=== PATIENT | male | born 1975 | race Hispanic/Latino ===

== ENCOUNTER → 2024-10-22 | Day surgery (SDC) | payer BC ==
[~2024-10-22] MED LIST: BENZOCAINE/TETRACAINE/BUTAMBEN AERO SPRAY 56 GM CAN ONE; FENTANYL CITRATE/PF 100MCG/2 ML INJ ONE; GLUCAGON FOR INJ 1 MG VIAL ONE; HYOSCYAMINE SULFATE 0.5 MG/ML INJ ONE; LACTATED RINGER'S 1,000 ML ONE; LIDOCAINE HCL 2% LOCAL INJ 5 ML SDV VIAL INJ ONE; METOCLOPRAMIDE HCL 10 MG/2ML VIAL ONE; NEOSTIGMINE 1 MG/ML 10ML VIAL ONE; PROPOFOL IV EMULSION 10 MG/ML 20 ML VIAL ONE; PROPOFOL IV EMULSION 50 ML IV ONE
[2024-10-22] MEDS: LACTATED RINGER'S 1,000 ML ONE (12:19)
[2024-10-22 14:49] VITALS: TEMP 97.1
[2024-10-22 15:20] VITALS: BP 123/89; PULSE 62; RESP 18; O2SAT 100
== END | disposition home or self-care (01) ==
LOC: OR 10-12 09:54
PROVIDERS: ATTEND Internal Medicine Gastroenterology
DX: K21.9 Gastro-esophageal reflux disease without esophagitis (principal); D12.2 Benign neoplasm of ascending colon; K29.50 Unspecified chronic gastritis without bleeding; Q27.33 Arteriovenous malformation of digestive system vessel; K22.10 Ulcer of esophagus without bleeding; K62.6 Ulcer of anus and rectum; K59.09 Other constipation; K62.5 Hemorrhage of anus and rectum; A63.0 Anogenital (venereal) warts; K64.8 Other hemorrhoids; Z71.3 Dietary counseling and surveillance; E66.01 Morbid (severe) obesity due to excess calories; R03.0 Elevated blood-pressure reading, without diagnosis of hypertension; Z71.89 Other specified counseling; Z01.810 Encounter for preprocedural cardiovascular examination; Z68.36 Body mass index [BMI] 36.0-36.9, adult
CPT/HCPCS: 43239; 45380; 45385; 93005; J1610; J1980; J2003; J2470; J2704 ×2; J2765; J3010; J7121 ×2; 45378; J2710

== ENCOUNTER → 2025-02-14 | Outpatient (REF) | payer BC ==
[~2025-02-14] MED LIST changes: -BENZOCAINE/TETRACAINE/BUTAMBEN AERO SPRAY 56 GM CAN ONE; -FENTANYL CITRATE/PF 100MCG/2 ML INJ ONE; -GLUCAGON FOR INJ 1 MG VIAL ONE; -HYOSCYAMINE SULFATE 0.5 MG/ML INJ ONE; +IOPAMIDOL 370 MG/ML 100 ML INFUS..BTL INJ ONE; -LACTATED RINGER'S 1,000 ML ONE; -LIDOCAINE HCL 2% LOCAL INJ 5 ML SDV VIAL INJ ONE; -METOCLOPRAMIDE HCL 10 MG/2ML VIAL ONE; -NEOSTIGMINE 1 MG/ML 10ML VIAL ONE; -PROPOFOL IV EMULSION 10 MG/ML 20 ML VIAL ONE; -PROPOFOL IV EMULSION 50 ML IV ONE
== END ==
LOC: CT 12:42
PROVIDERS: ATTEND Internal Medicine Gastroenterology
DX: Q42.3 Congenital absence, atresia and stenosis of anus without fistula (principal)
CPT/HCPCS: 72193; Q9967